=== PATIENT | male | born 1965 | race Caucasian/White ===

== ENCOUNTER 2018-09-18 08:33 | Day surgery (SDC) | payer BC ==
[~2018-09-18 08:33] MED LIST: PROPOFOL 200 MG/20 ML VIAL As Ordered
[2018-09-18] MEDS: NS 1,000 ML IV (09:00)
== END 2018-09-18 10:40 | disposition home or self-care (01) ==
LOC: M OPP 08:33
DX: Z12.11 Encounter for screening for malignant neoplasm of colon (principal); Z85.038 Personal history of other malignant neoplasm of large intestine; Q43.8 Other specified congenital malformations of intestine; Z92.3 Personal history of irradiation; Z92.21 Personal history of antineoplastic chemotherapy; Z88.0 Allergy status to penicillin; Z91.041 Radiographic dye allergy status; Z80.0 Family history of malignant neoplasm of digestive organs
CPT/HCPCS: 44388